=== PATIENT | female | born 1935 | race Hispanic/Latino ===

== ENCOUNTER 2016-09-15 19:21 | Emergency (ER) | payer MEDICARE, OTHER ==
[2016-09-15 19:25] VITALS: BMI 36.3
[2016-09-15 19:34] VITALS: TEMP 98
--- NOTE | 2016-09-15 19:42 | ED PDOC ---
Arrival/HPI - General Chief Complaint: Upper Extremity Problem/Injury Time Seen by Provider: 09/15/16 19:36 Historian: Patient - History of Present Illness Narrative History of Present Illness (Text): 09/15/16 19:37 81 y/o female, pmh includint htn/hyperlipidemia/hypothyroidism/afibb on coumadin , nkda, on coumadin, c/o lt. sided neck pain radiating to the lt. upper extremity x 3 days with no fall or trauma. Aching pain, tightness sensation, no chest pain or back pain, no night sweat, no palpitation, no numbness or tingling, no dizziness, took tramadol prior to arrival, no other medical or psychological complaints. Past Medical History - Provider Review Nursing Documentation Reviewed: Yes - Infectious Disease Hx of Infectious Diseases: None - Cardiac Hx Cardiac Disorders: Yes Hx Atrial Fibrillation: Yes Hx Hypertension: Yes - Pulmonary Hx Respiratory Disorders: No - Neurological Hx Neurological Disorder: Yes Other/Comment: neuropathy - HEENT Hx HEENT Disorder: No - Renal Hx Renal Disorder: No - Endocrine/Metabolic Hx Endocrine Disorders: Yes Hx Hypothyroidism: Yes - Hematological/Oncological Hx Blood Disorders: No - Integumentary Hx Dermatological Disorder: No - Musculoskeletal/Rheumatological Hx Musculoskeletal Disorders: No - Gastrointestinal Hx Gastrointestinal Disorders: No - Genitourinary/Gynecological Hx Genitourinary Disorders: No - Psychiatric Hx Psychophysiologic Disorder: No Hx Substance Use: No - Surgical History Hx Mastectomy: Yes (Right breast) - Anesthesia Hx Anesthesia: Yes Hx Anesthesia Reactions: No Family/Social History - Physician Review Nursing Documentation Reviewed: Yes Family/Social History: Unknown Family HX Smoking Status: Never Smoked Hx Alcohol Use: No Hx Substance Use: No Allergies/Home Meds Allergies/Adverse Reactions: Allergies No Known Allergies Allergy (Verified 03/28/16 12:58) Home Medications: Home Meds Medication Instructions Recorded Confirmed Amiodarone HCl [Pacerone] 100 mg PO DAILY 03/28/16 09/15/16 Furosemide [Lasix] 40 mg PO DAILY 03/28/16 09/15/16 Gabapentin [Neurontin] 100 mg PO BID 03/28/16 09/15/16 Gabapentin [Neurontin] 100 mg PO HS 03/28/16 09/15/16 Lansoprazole [Prevacid] 30 mg PO DAILY 03/28/16 09/15/16 Levothyroxine [Synthroid] 50 mcg PO DAILY 03/28/16 09/15/16 Lovastatin 40 mg PO DAILY 03/28/16 09/15/16 Metoprolol Succinate [Toprol XL] 50 mg PO DAILY 03/28/16 09/15/16 Oxybutynin XL [Ditropan XL] 5 mg PO DAILY 03/28/16 09/15/16 Risedronate Sodium [Actonel] 35 mg PO QWK 03/28/16 09/15/16 Warfarin [Coumadin] 2 mg PO DAILY 03/28/16 09/15/16 amLODIPine [Norvasc] 2.5 mg PO DAILY 03/28/16 09/15/16 Review of Systems - Review of Systems Constitutional: absent: Fatigue, Weight Change Eyes: absent: Vision Changes ENT: absent: Hearing Changes Respiratory: absent: SOB, Cough Cardiovascular: absent: Chest Pain Gastrointestinal: absent: Abdominal Pain, Diarrhea, Nausea, Vomiting Genitourinary Female: absent: Dysuria, Vaginal Bleeding Musculoskeletal: Neck Pain, Myalgias. absent: Arthralgias, Back Pain, Joint Swelling Skin: absent: Rash, Pruritis Neurological: absent: Headache, Dizziness Endocrine: absent: Diaphoresis, Polyuria, Polydipsia Hemo/Lymphatic: absent: Adenopathy, Easy Bleeding, Easy Bruising Physical Exam Vital Signs Reviewed: Yes Vital Signs Temp Pulse Resp BP Pulse Ox 09/15/16 19:33 98 F 58 L 20 111/67 96 Temperature: Afebrile Blood Pressure: Normal Pulse: Regular Respiratory Rate: Normal Appearance: Positive for: Well-Appearing, Non-Toxic, Uncomfortable Pain Distress: Severe Mental Status: Positive for: Alert and Oriented X 3 - Systems Exam Head: Present: Atraumatic, Normocephalic Pupils: Present: PERRL Extroacular Muscles: Present: EOMI Conjunctiva: Present: Normal Mouth: Present: Moist Mucous Membranes Neck: Present: Normal Range of Motion, Paraspinal Tenderness, Trachea Midline, Other (Cervical: +ttp and spams noted on the lt. trapezius plus the paraspinal region, no midline tenderness or step off, no rash or cellulitis, FROM with pain upon left lateral movement, sensation intact, motor 5/5, pain is 100% reproducible by left lateral movement. ). No: Meningeal Signs, MIDLINE TENDERNESS, Lymphadenopathy Respiratory/Chest: Present: Clear to Auscultation, Good Air Exchange. No: Respiratory Distress, Accessory Muscle Use Cardiovascular: Present: Regular Rate and Rhythm, Normal S1, S2. No: Murmurs Abdomen: Present: Normal Bowel Sounds. No: Tenderness, Distention, Peritoneal Signs Back: Present: Normal Inspection. No: CVA Tenderness, Midline Tenderness, Paraspinal Tenderness Upper Extremity: Present: Normal Inspection. No: Cyanosis, Edema Lower Extremity: Present: Normal Inspection. No: Edema Neurological: Present: GCS=15, CN II-XII Intact, Speech Normal Skin: Present: Warm, Dry, Normal Color. No: Rashes Psychiatric: Present: Alert, Oriented x 3, Normal Insight, Normal Concentration Medical Decision Making ED Course and Treatment: 09/15/16 19:43 -labs -lidoderm patch -valium -EKG -CT cervical -observe and reassess 09/15/16 21:26 -EKG show no acute significant changes compared with previous ekg -CT Cervical show mild foraminal narrowing with the degenerative changes. -Labs are non-significant with negative cardiac enzymes after several days of pain except wbc 11.6 which likely induced from pain and stress. -Pain relief with the valium and lidoderm patch, no pain now, request to be discharge home. I discussed with Dr. Welch about the case and he agreed on the dispo and discharge plan. -Discharge home with valium, lidoderm patch, heat compression, follow up with your own pmd and pain management within 2 days, return to the ER for any new or worsening signs or symptoms. - Lab Interpretations Lab Results: 09/15/16 20:00 09/15/16 20:00 Lab Results 09/15/16 20:00: WBC 11.6 H D, RBC 4.48, Hgb 13.2, Hct 40.5, MCV 90.4, MCH 29.5, MCHC 32.6, RDW 15.3 H, Plt Count 365, MPV 9.9, Gran % 67.0, Lymph % (Auto) 17.2 L, [place] % (Auto) 13.3 H, Eos % (Auto) 2.2, Baso % (Auto) 0.3, Gran # 7.77 H, Lymph # 2.0, [place] # 1.5 H, Eos # 0.3, Baso # 0.03, PT 10.9, INR 1.01, Sodium 138 , Potassium 4.1, Chloride 98, Carbon Dioxide 28, Anion Gap 16, BUN 18, Creatinine 1.0, Est GFR ( Amer) > 60, Est GFR (Non-Af Amer) 53, Random Glucose 127 H, Calcium 9.8, Total Bilirubin 0.9, AST 32, ALT 22, Alkaline Phosphatase 93, Lactate Dehydrogenase 560, Total Creatine Kinase 75, Troponin I < 0.01 D, Total Protein 7.4, Albumin 4.0, Globulin 3.3, Albumin/Globulin Ratio 1.2 I have reviewed the lab results: Yes Interpretation: Abnormal lab values (wbc 11.6) - RAD Interpretation Radiology Orders: 09/15/16 19:44 CERVICAL SPINE W/O CONTRAST [CT] Stat FINDINGS: Vertebrae: No acute fracture. Straightening of cervical spine. Degenerative anterolisthesis of mid cervical spine. Facet osteoarthrosis within cervical spine. Discs/spinal canal/neural foramina: Moderate to severe degenerative disc disease within mid to lower cervical spine. No significant central canal stenosis. Neural foraminal narrowing within mid and lower cervical spine. Soft tissues: Unremarkable. Vasculature: Mild atherosclerotic disease. Lung apices: Unremarkable as visualized. IMPRESSION: 1. No fracture. 2. Incidental/non-acute findings are described above. Thank you for allowing us to participate in the care of your patient. Dictated and Authenticated by: Amanuel Ham MD 09/15/2016 9:06 PM Eastern Time ([place] & [place]) [employer] Teacher: Radiologist - EKG Interpretation EKG Interpretation (Text): 09/15/16 20:00 SB @ 51 BPM, no acute ST or T wave changes compared with the previous ekg. Interpreted by ED Physician: Yes Type: 12 lead EKG Comparison: Com.w/previous EKG - Medication Orders Current Medication Orders: Discontinued Medications Diazepam (Valium) 5 mg PO ONCE ONE PRN Reason: Protocol Stop: 09/15/16 19:45 Last Admin: 09/15/16 19:52 Dose: 5 MG Behavioural Document 09/15/16 19:52 RD (Rec: 09/15/16 19:53 RD [id number]) Maintenance Maintenance Dose Yes Lidocaine (Lidoderm) 1 ea TD STAT STA Stop: 09/15/16 19:45 Last Admin: 09/15/16 19:52 Dose: 1 EA MAR Transdermal Patch Site Document 09/15/16 19:52 RD (Rec: 09/15/16 19:52 RD [id number]) Transdermal Patch Site Transdermal Patch Site Left Shoulder - PA / SECOND CLASS WELDER / Resident Statement / has reviewed & agrees with the documentation as recorded. Disposition/Present on Arrival - Present on Arrival Any Indicators Present on Arrival: No History of DVT/PE: No History of Uncontrolled Diabetes: No Urinary Catheter: No History of Decub. Ulcer: No History Surgical Site Infection Following: None - Disposition Have Diagnosis and Disposition been Completed?: Yes Diagnosis: Neck muscle spasm, Trapezius muscle spasm Disposition: HOME/ ROUTINE Disposition Time: 21:28 Patient Plan: Discharge Patient Problems: Current Active Problems Problem Status Diagnosed Neck muscle spasm Acute Trapezius muscle spasm Acute Condition: IMPROVED Additional Instructions: Discharge home with valium, lidoderm patch, heat compression, follow up with your own pmd and pain management within 2 days, return to the ER for any new or worsening signs or symptoms. Prescriptions: Lidocaine 5% [Lidoderm] 1 patch TP DAILY PRN #10 patch PRN Reason: Other diaZEpam [Valium] 5 mg PO TID PRN #8 tab PRN Reason: Other Referrals: Tish South DO [Primary Care Provider] - Follow up with primary Forms: WORK NOTE
[2016-09-15] MEDS ORDERED: Lidocaine 5% Patch TD STA (19:44)
[2016-09-15 20:30] LABS: ADD MANUAL DIFF? NO
[2016-09-15 20:35] LABS: BASO # 0.03 K/mm3 (0.0-2.0); BASO % 0.3 % (0.0-3.0); EOS # 0.3 (0.0-0.7); EOS % 2.2 % (1.5-5.0); GRAN # 7.77 (1.4-6.5); HEMATOCRIT 40.5 % (36.0-48.0); LYMPH % 17.2 % (22.0-35.0); MEAN CELL VOLUME 90.4 fL (80.0-105.0); MEAN CORPUSCULAR HEMOGLOBIN 29.5 pg (25.0-35.0); MEAN CORPUSCULAR HGB CONC 32.6 g/dl (31.0-37.0); MEAN PLATELET VOLUME 9.9 fl (7.0-11.0); MONO # 1.5 (0.1-0.6); MONO % 13.3 % (1.0-6.0); PLATELET COUNT 365 10^3/uL (120.0-450.0); RED CELL DISTRIBUTION WIDTH 15.3 % (11.5-14.5); WHITE BLOOD COUNT 11.6 10^3/ul (4.5-11.0)
[2016-09-15 20:43] LABS: ALB/GLOB RATIO 1.2 (1.1-1.8); ALKALINE PHOSPHATASE 93 U/L (38-133); ALT/SGPT 22 U/L (7-56); AST/SGOT 32 U/L (15-39); BILIRUBIN,TOTAL 0.9 mg/dL (0.2-1.3); BLOOD UREA NITROGEN 18 mg/dL (7-21); CALCIUM 9.8 mg/dL (8.4-10.5); CARBON DIOXIDE 28 mmol/L (21-33); CHLORIDE 98 mmol/L (98-107); GFR AFRICAN-AMERICAN > 60; GLUCOSE,RANDOM 127 mg/dL (70-110); POTASSIUM 4.1 mmol/L (3.6-5.0); SODIUM 138 mmol/L (132-148); TOTAL PROTEIN 7.4 g/dL (5.8-8.3)
[2016-09-15 20:56] LABS: TROPONIN I < 0.01 ng/mL
[2016-09-15 20:57] LABS: INR 1.01 (0.93-1.08)
--- NOTE | 2016-09-15 21:06 | CT ---
EXAM: CT Cervical Spine Without Intravenous Contrast. CLINICAL HISTORY: 81 years old, female; Pain; Cervicalgia; Patient HX: Lt. Sided neck pain radiating to the lt. Upper ext TECHNIQUE: Axial computed tomography images of the cervical spine without intravenous contrast. This CT exam was performed using one or more of the following dose reduction techniques: automated exposure control, adjustment of the mA and/or kV according to patient size, and/or use of iterative reconstruction technique. Coronal and sagittal reformatted images were created and reviewed. COMPARISON: No relevant prior studies available. FINDINGS: Vertebrae: No acute fracture. Straightening of cervical spine. Degenerative anterolisthesis of mid cervical spine. Facet osteoarthrosis within cervical spine. Discs/spinal canal/neural foramina: Moderate to severe degenerative disc disease within mid to lower cervical spine. No significant central canal stenosis. Neural foraminal narrowing within mid and lower cervical spine. Soft tissues: Unremarkable. Vasculature: Mild atherosclerotic disease. Lung apices: Unremarkable as visualized. IMPRESSION: 1. No fracture. 2. Incidental/non-acute findings are described above.
[2016-09-15 21:33] VITALS: BP 118/64; PULSE 59; RESP 16; O2SAT 99
--- NOTE | 2016-09-16 10:02 | CARD ---
APPROVED REPORT EKG Measurement Heart [id number] <Conclusion> Sinus bradycardia Nonspecific ST and T wave abnormality LVH by voltage A. Flutter no longer present.
== END 2016-09-15 21:40 | disposition home or self-care (01) ==
LOC: ED 19:21
DX: M62.838 Other muscle spasm (principal); I48.91 Unspecified atrial fibrillation; I10 Essential (primary) hypertension; E78.5 Hyperlipidemia, unspecified; E03.9 Hypothyroidism, unspecified; Z79.01 Long term (current) use of anticoagulants

== ENCOUNTER 2016-11-12 14:45 | Emergency (ER) | payer MEDICARE ==
[2016-11-12 14:45] VITALS: BMI 36.3
[2016-11-12 15:09] LABS: ADD MANUAL DIFF? NO
[2016-11-12 15:33] LABS: BASO # 0.03 K/mm3 (0.0-2.0); BASO % 0.3 % (0.0-3.0); EOS # 0.1 (0.0-0.7); EOS % 1.3 % (1.5-5.0); GRAN # 6.94 (1.4-6.5); GRAN % 68.1 % (50.0-68.0); HEMATOCRIT 41.9 % (36.0-48.0); LYMPH # 1.9 (1.2-3.4); LYMPH % 19.1 % (22.0-35.0); MEAN CELL VOLUME 91.5 fL (80.0-105.0); MEAN CORPUSCULAR HEMOGLOBIN 28.8 pg (25.0-35.0); MEAN CORPUSCULAR HGB CONC 31.5 g/dl (31.0-37.0); MEAN PLATELET VOLUME 9.6 fl (7.0-11.0); MONO # 1.1 (0.1-0.6); MONO % 11.2 % (1.0-6.0); PLATELET COUNT 277 10^3/uL (120.0-450.0); RED CELL DISTRIBUTION WIDTH 14.9 % (11.5-14.5); WHITE BLOOD COUNT 10.2 10^3/ul (4.5-11.0)
[2016-11-12 15:38] LABS: INR 2.44 (0.93-1.08); PARTIAL THROMBOPLASTIN TIME 35.9 Seconds (23.7-30.8)
--- NOTE | 2016-11-12 15:39 | ED PDOC ---
Arrival/HPI - General Chief Complaint: Chest Pain Time Seen by Provider: 11/12/16 15:07 Historian: Patient - History of Present Illness Narrative History of Present Illness (Text): 11/12/16 15:35 Clarissa Gross is an 81 year old female, whose past medical history includes Atrial Fibrillation, who presents to the emergency department complaining of chest discomfort for one day. Patient describes her pain is across her chest and is non-exertional. Patient endorses compliance with all medications. Patient denies any ripping, tearing,or radiating sensations and has no other complaints at this time. Previous records were reviewed, patient was discharged on 04/29/16 and was diagnosed with Pneumonia. Patient has a history of chronic atrial fibrillation. EKG now shows Atrial fibrillation at [address]-segment elevation. PMD: Dr. South Time/Duration: 24 hours Symptom Onset: Gradual Symptom Course: Unchanged Severity Level: Mild Activities at Onset: Rest Context: Home Past Medical History - Provider Review Nursing Documentation Reviewed: Yes - Infectious Disease Hx of Infectious Diseases: None - Cardiac Hx Cardiac Disorders: Yes Hx Atrial Fibrillation: Yes Hx Hypertension: Yes - Pulmonary Hx Respiratory Disorders: No - Neurological Hx Neurological Disorder: Yes Other/Comment: neuropathy - HEENT Hx HEENT Disorder: No - Renal Hx Renal Disorder: No - Endocrine/Metabolic Hx Endocrine Disorders: Yes Hx Hypothyroidism: Yes - Hematological/Oncological Hx Blood Disorders: No - Integumentary Hx Dermatological Disorder: No - Musculoskeletal/Rheumatological Hx Musculoskeletal Disorders: No - Gastrointestinal Hx Gastrointestinal Disorders: No - Genitourinary/Gynecological Hx Genitourinary Disorders: No - Psychiatric Hx Psychophysiologic Disorder: No Hx Substance Use: No - Surgical History Hx Mastectomy: Yes (Right breast) - Anesthesia Hx Anesthesia: Yes Hx Anesthesia Reactions: No Family/Social History - Physician Review Nursing Documentation Reviewed: Yes Family/Social History: No Known Family HX Smoking Status: Never Smoked Hx Alcohol Use: No Hx Substance Use: No Allergies/Home Meds Allergies/Adverse Reactions: Allergies No Known Allergies Allergy (Verified 03/28/16 12:58) Home Medications: Home Meds Medication Instructions Recorded Confirmed Amiodarone HCl [Pacerone] 100 mg PO DAILY 03/28/16 09/15/16 Furosemide [Lasix] 40 mg PO DAILY 03/28/16 09/15/16 Gabapentin [Neurontin] 100 mg PO BID 03/28/16 09/15/16 Gabapentin [Neurontin] 100 mg PO HS 03/28/16 09/15/16 Lansoprazole [Prevacid] 30 mg PO DAILY 03/28/16 09/15/16 Levothyroxine [Synthroid] 50 mcg PO DAILY 03/28/16 09/15/16 Lovastatin 40 mg PO DAILY 03/28/16 09/15/16 Metoprolol Succinate [Toprol XL] 50 mg PO DAILY 03/28/16 09/15/16 Oxybutynin XL [Ditropan XL] 5 mg PO DAILY 03/28/16 09/15/16 Risedronate Sodium [Actonel] 35 mg PO QWK 03/28/16 09/15/16 Warfarin [Coumadin] 2 mg PO DAILY 03/28/16 09/15/16 amLODIPine [Norvasc] 2.5 mg PO DAILY 03/28/16 09/15/16 Physical Exam - Physical Exam Narrative Physical Exam (Text): - Review of Systems Constitutional: Normal. absent: Fatigue, Weight Change, Fevers Eyes: Normal ENT: Normal Respiratory: Normal absent: SOB, Cough, Sputum Cardiovascular: Chest Discomfort Gastrointestinal: Normal absent: Abdominal pain, Diarrhea, Nausea, Vomiting Genitourinary: Normal. absent: Dysuria, Frequency, Hematuria Musculoskeletal: Normal. absent: Arthralgias, Back Pain, Neck Pain Skin: Normal Neurological: Normal absent: Focal Weakness Endocrine: Normal Hemo/Lymphatic: Normal Psychiatric: Normal - Physical exam Patient appears age appropriate, speaking full sentences without difficulty - Systems Exam Head: Present: Atraumatic, Normocephalic Pupils: Present: PERRL Extraocular Muscles: Present: EOMI Conjunctiva: Present: Normal Mouth: Present: Moist Mucous Membranes Neck: Present: Normal Range of Motion. No: MIDLINE TENDERNESS, Paraspinal Tenderness Respiratory/Chest: Present: Clear to Auscultation, Good Air Exchange. No: Respiratory Distress, Accessory Muscle Use, Tachypnic Cardiovascular: Tachycardic. No: Murmurs Abdomen: Present: Normal Bowel Sounds, No: Tenderness, Peritoneal Signs, Rebound, Guarding, Distention Back: Present: Normal Inspection. No: Midline Tenderness, Paraspinal Tenderness Upper Extremity: Present: Normal Inspection. No: Cyanosis, Edema Lower Extremity: Present: Normal Inspection. No: Edema Neurological: Present: GCS=15, Speech Normal, cranial nerves II through XII fully intact with no cerebellar abnormality, neuro-sensory fully intact. No focal neurological deficits. Skin: Present: Warm, Dry, Normal Color. No: Rashes Lymphatic: Present: OX3, NI, NC Psychiatric: Present: Alert, Oriented x 3, Normal Insight, Normal Concentration Vital Signs Temp Pulse Resp BP Pulse Ox 11/12/16 16:42 98.0 F 103 H 17 117/65 96 Medical Decision Making ED Course and Treatment: 11/12/16 15:24 Impression: 81 year old female complaining of chest discomfort for one day. Patient in no acute distress and denies any chest pain at this time. No acute findings on physical examination. Plan: -- Chest X-ray -- Labs -- Reassess and disposition Prior Visits: Notes and results from previous visits were reviewed. Patient last seen in the ED on 09/15/16 for left-sided neck pain radiating to left UE for 3 days. Patient was discharged home. Progress Notes: EKG shows Atrial Fibrillation at [address]-segment elevations, normal intervals. Interpreted by me. 11/12/16 17:[address] Wheeler, who states that patient can be discharged home and will follow up on . Patient was advised to be admitted for further workup but patient refused and requested to follow up with her claims representative. 11/12/16 17:49 pt again advised to be observed in the hospital, and she again refused states she feels comfortable going home with outpatient f/u Pt states she understands to return to the ER right away for new or worsening symptoms or for inability to f/u with PMD or specialist as instructed. Patient states that she fully agrees with and understands discharge instructions. States that she agrees with the plan and disposition. Verbalized and repeated discharge instructions and plan. I have given the patient opportunity to ask any additional questions. 11/12/16 17:57 Chest X-ray: Creator : Chaka Solis MD IMPRESSION: No active disease. - Lab Interpretations Lab Results: 11/12/16 15:00 11/12/16 17:00 Lab Results 11/12/16 17:00: Sodium 139, Potassium 3.8, Chloride 105, Carbon Dioxide 25, Anion Gap 13, BUN 24 H, Creatinine 1.0, Est GFR ( Amer) > 60, Est GFR ( Non-Af Amer) 53, Random Glucose 103, Calcium 9.1, Total Bilirubin 0.8, AST 32, ALT 43, Alkaline Phosphatase 102, Lactate Dehydrogenase 885 H, Total Creatine Kinase 119, Troponin I < 0.01, Total Protein 7.4, Albumin 4.1, Globulin 3.3, Albumin/Globulin Ratio 1.2 11/12/16 15:00: PT 26.3 H, INR 2.44 H, APTT 35.9 H 11/12/16 15:00: WBC 10.2, RBC 4.58, Hgb 13.2, Hct 41.9, MCV 91.5, MCH 28.8, MCHC 31.5, RDW 14.9 H, Plt Count 277, MPV 9.6, Gran % 68.1 H, Lymph % (Auto) 19.1 L, [place] % (Auto) 11.2 H, Eos % (Auto) 1.3 L, Baso % (Auto) 0.3, Gran # 6.94 H, Lymph # 1.9, [place] # 1.1 H, Eos # 0.1, Baso # 0.03 I have reviewed the lab results: Yes - RAD Interpretation Radiology Orders: 11/12/16 15:04 CHEST PORTABLE [RAD] Stat - Scribe Statement The provider has reviewed the documentation as recorded by the Bernadette Barfield Provider Scribe Attestation: All medical record entries made by the Scribe were at my direction and personally dictated by me. I have reviewed the chart and agree that the record accurately reflects my personal performance of the history, physical exam, medical decision making, and the department course for this patient. I have also personally directed, reviewed, and agree with the discharge instructions and disposition. Disposition/Present on Arrival - Present on Arrival Any Indicators Present on Arrival: No History of DVT/PE: No History of Uncontrolled Diabetes: No Urinary Catheter: No History of Decub. Ulcer: No History Surgical Site Infection Following: None - Disposition Have Diagnosis and Disposition been Completed?: Yes Diagnosis: Chest pain Disposition: HOME/ ROUTINE Disposition Time: 17:52 Patient Plan: Discharge Patient Problems: Current Active Problems Problem Status Onset Chest pain Acute Condition: GOOD Discharge Instructions (ExitCare): Chest Pain (ED) Additional Instructions: PLEASE RETURN TO THE EMERGENCY DEPARTMENT FOR NEW OR WORSENING SYMPTOMS. RETURN RIGHT AWAY IF YOU CANNOT FOLLOW UP WITH YOUR PRIMARY CARE DOCTOR, CLINIC, OR SPECIALIST IN 1-2 DAYS. Referrals: Tish South DO [Primary Care Provider] - Follow up with primary Zane Wheeler MD [Staff Provider] - Follow up with primary
--- NOTE | 2016-11-12 15:50 | RAD ---
HISTORY: chest pain COMPARISON: No prior. FINDINGS: LUNGS: No active pulmonary disease. PLEURA: No significant pleural effusion identified, no pneumothorax apparent. CARDIOVASCULAR: Moderate cardiomegaly OSSEOUS STRUCTURES: No significant abnormalities. VISUALIZED UPPER ABDOMEN: Normal. OTHER FINDINGS: None. IMPRESSION: No active disease.
[2016-11-12 16:43] VITALS: TEMP 98
[2016-11-12 17:30] LABS: ALB/GLOB RATIO 1.2 (1.1-1.8); ALKALINE PHOSPHATASE 102 U/L (38-133); ALT/SGPT 43 U/L (7-56); AST/SGOT 32 U/L (15-39); BILIRUBIN,TOTAL 0.8 mg/dL (0.2-1.3); BLOOD UREA NITROGEN 24 mg/dL (7-21); CALCIUM 9.1 mg/dL (8.4-10.5); CARBON DIOXIDE 25 mmol/L (21-33); CHLORIDE 105 mmol/L (98-107); GFR AFRICAN-AMERICAN > 60; GLUCOSE,RANDOM 103 mg/dL (70-110); POTASSIUM 3.8 mmol/L (3.6-5.0); SODIUM 139 mmol/L (132-148); TOTAL PROTEIN 7.4 g/dL (5.8-8.3)
[2016-11-12 17:48] LABS: TROPONIN I < 0.01 ng/mL
[2016-11-12 18:03] VITALS: BP 129/76; PULSE 95; RESP 16; O2SAT 95
--- NOTE | 2016-11-12 22:21 | CARD ---
APPROVED REPORT EKG Measurement Heart [id number] <Conclusion> Atrial flutter with variable AV block Nonspecific ST and T wave abnormality Abnormal ECG
== END 2016-11-12 18:06 | disposition home or self-care (01) ==
LOC: ED 14:45
DX: I48.91 Unspecified atrial fibrillation (principal)

== ENCOUNTER 2017-01-23 09:08 | Observation (INO) | payer MEDICARE ==
[2017-01-23 10:04] LABS: BASO # 0.04 K/mm3 (0.0-2.0); BASO % 0.7 % (0.0-3.0); EOS # 0.3 (0.0-0.7); EOS % 5.4 % (1.5-5.0); GRAN # 2.74 (1.4-6.5); GRAN % 45.2 % (50.0-68.0); HEMOGLOBIN 12.7 gm/dL (12.0-16.0); LYMPH # 2.1 (1.2-3.4); LYMPH % 34.2 % (22.0-35.0); MEAN CELL VOLUME 85.8 fL (80.0-105.0); MEAN CORPUSCULAR HGB CONC 31.4 g/dl (31.0-37.0); MEAN PLATELET VOLUME 10.1 fl (7.0-11.0); MONO # 0.9 (0.1-0.6); MONO % 14.5 % (1.0-6.0); PLATELET COUNT 307 10^3/uL (120.0-450.0); RBC 4.71 10^6/uL (3.5-6.1); RED CELL DISTRIBUTION WIDTH 16.4 % (11.5-14.5); WHITE BLOOD COUNT 6.1 10^3/ul (4.5-11.0)
--- NOTE | 2017-01-23 10:09 | ED PDOC ---
Arrival/HPI - General Chief Complaint: Medical Clearance Time Seen by Provider: 01/23/17 09:16 Historian: Patient - History of Present Illness Narrative History of Present Illness (Text): 01/23/17 09:51 Clarissa Gross is an 81 year old female, whose past medical history includes Atrial Fibrillation, HTN, breast CA in remission, PUD, and UTI, who was sent into emergency department by Dr. South for a high INR level of 10 when blood was drawn two days ago. Patient states that she has been feeling nauseated for the past month, possibly attributed to antibiotics for a UTI. This morning, the patient was trying to take pills but had a small vomitus with blood streaks. Patient denies any abdominal pain, hematochezia, hematuria, or any other complaint at this time. PMD: Dr. South Urologist: Dr. Cates GI: Dr. Hsieh Time/Duration: < month Symptom Onset: Gradual Symptom Course: Unchanged Severity Level: Mild Activities at Onset: Light Context: Home Past Medical History - Provider Review Nursing Documentation Reviewed: Yes - Infectious Disease Hx of Infectious Diseases: None - Reproductive Menopause: Yes - Cardiac Hx Cardiac Disorders: Yes Hx Atrial Fibrillation: Yes Hx Hypertension: Yes - Pulmonary Hx Respiratory Disorders: No - Neurological Hx Neurological Disorder: Yes Other/Comment: neuropathy - HEENT Hx HEENT Disorder: No - Renal Hx Renal Disorder: No - Endocrine/Metabolic Hx Endocrine Disorders: Yes Hx Hypothyroidism: Yes - Hematological/Oncological Hx Blood Disorders: No - Integumentary Hx Dermatological Disorder: No - Musculoskeletal/Rheumatological Hx Musculoskeletal Disorders: No - Gastrointestinal Hx Gastrointestinal Disorders: No - Genitourinary/Gynecological Hx Genitourinary Disorders: No Other/Comment: frequent UTI - Psychiatric Hx Psychophysiologic Disorder: No Hx Substance Use: No - Surgical History Hx Mastectomy: Yes (Right breast) - Anesthesia Hx Anesthesia: Yes Hx Anesthesia Reactions: No Family/Social History - Physician Review Nursing Documentation Reviewed: Yes Family/Social History: No Known Family HX Smoking Status: Never Smoked Hx Alcohol Use: No Hx Substance Use: No Allergies/Home Meds Allergies/Adverse Reactions: Allergies No Known Allergies Allergy (Verified 01/23/17 12:06) Home Medications: Home Meds Medication Instructions Recorded Confirmed Amiodarone HCl [Pacerone] 100 mg PO DAILY 03/28/16 01/23/17 Furosemide [Lasix] 40 mg PO DAILY 03/28/16 01/23/17 Lansoprazole [Prevacid] 30 mg PO DAILY 03/28/16 01/23/17 Levothyroxine [Synthroid] 50 mcg PO DAILY 03/28/16 01/23/17 Lovastatin 40 mg PO DAILY 03/28/16 01/23/17 Metoprolol Succinate [Toprol XL] 50 mg PO DAILY 03/28/16 01/23/17 Oxybutynin XL [Ditropan XL] 5 mg PO DAILY 03/28/16 01/23/17 Risedronate Sodium [Actonel] 35 mg PO QWK 03/28/16 01/23/17 Warfarin [Coumadin] 2 mg PO DAILY 03/28/16 01/23/17 amLODIPine [Norvasc] 2.5 mg PO DAILY 03/28/16 01/23/17 Nortriptyline [Nortriptyline HCl] 100 mg PO HS 01/23/17 01/23/17 Review of Systems - Physician Review All systems were reviewed & negative as marked: Yes - Review of Systems Constitutional: Other (INR level 10). absent: Night Sweats Eyes: absent: Vision Changes ENT: absent: Hearing Changes Respiratory: absent: SOB, Cough Cardiovascular: absent: Chest Pain Gastrointestinal: Vomiting (with streaks of blood), Other. absent: Abdominal Pain Genitourinary Female: absent: Hematuria, Urine Output Changes Musculoskeletal: Neck Pain. absent: Arthralgias, Back Pain Skin: absent: Rash, Pruritis Neurological: absent: Headache, Dizziness Endocrine: absent: Diaphoresis Hemo/Lymphatic: absent: Adenopathy Psychiatric: absent: Depression Physical Exam Vital Signs Reviewed: Yes Vital Signs Temp Pulse Resp BP Pulse Ox 01/23/17 12:34 53 L 18 120/53 L 98 01/23/17 11:41 51 L 18 140/61 98 01/23/17 09:12 97.5 F L 48 L 18 142/65 98 Temperature: Afebrile Blood Pressure: Normal Pulse: Bradycardic Respiratory Rate: Normal Appearance: Positive for: Well-Appearing, Non-Toxic, Comfortable Pain Distress: None Mental Status: Positive for: Alert and Oriented X 3 - Systems Exam Head: Present: Atraumatic, Normocephalic Pupils: Present: PERRL Conjunctiva: Present: Normal Mouth: Present: Moist Mucous Membranes Pharnyx: Present: Normal. No: ERYTHEMA, EXUDATE Neck: Present: Normal Range of Motion Respiratory/Chest: Present: Clear to Auscultation, Good Air Exchange. No: Respiratory Distress, Accessory Muscle Use Cardiovascular: Present: Regular Rate and Rhythm, Normal S1, S2. No: Murmurs Abdomen: Present: Normal Bowel Sounds. No: Tenderness, Distention, Peritoneal Signs Back: Present: Normal Inspection Upper Extremity: Present: Normal Inspection. No: Cyanosis, Edema Lower Extremity: Present: Normal Inspection. No: Edema Neurological: Present: GCS=15, CN II-XII Intact, Speech Normal Skin: Present: Warm, Dry, Normal Color. No: Rashes Psychiatric: Present: Alert, Oriented x 3, Normal Insight, Normal Concentration Medical Decision Making ED Course and Treatment: 01/23/17 09:51 Impression: 81 year old female sent in by Dr. South for an elevated INR level of 10 when blood was drawn two days ago. Differential Diagnosis included but are not limited to: Elevated INR Levels Plan: -- Labs -- Reassess and disposition Prior Visits: Notes and results from previous visits were reviewed. Patient last seen in the ED on 11/12/16 for chest discomfort that day. Patient was discharged home. Progress Notes: EKG: Ordered, reviewed, and independently interpreted the EKG. Rate : BPM Rhythm : Sinus bradycardia Interpretation : Normal intervals. Normal [place]. Non-specific ST-T wave changes. 01/23/17 11:29 Patient with noted history; INR repeated here in 9.21; given concern for possible GI bleeding with the coumadin coagulopathy, will administer vitamin K and observe further and obtain GI consult. Discussed the case with Dr. South. 01/23/17 13:[address] Pagan for placement on her service. - Lab Interpretations Lab Results: 01/23/17 10:00 01/23/17 10:50 Lab Results 01/23/17 10:50: Sodium 139, Potassium 3.9, Chloride 104, Carbon Dioxide 25, Anion Gap 14, BUN 11, Creatinine 1.1, Est GFR ( Amer) 57, Est GFR (Non- Af Amer) 47, Random Glucose 92, Calcium 8.9, Magnesium 1.8, Total Bilirubin 1.2 , AST 33, ALT 25, Alkaline Phosphatase 81, Lactate Dehydrogenase 485, Total Creatine Kinase 54, Troponin I < 0.01, Total Protein 6.6, Albumin 3.6, Globulin 3.0, Albumin/Globulin Ratio 1.2, Lipase 47 01/23/17 10:00: PT 99.5 H*, INR 9.21 H*, APTT 67.4 H 01/23/17 10:00: WBC 6.1 D, RBC 4.71, Hgb 12.7, Hct 40.4, MCV 85.8, MCH 27.0, MCHC 31.4, RDW 16.4 H, Plt Count 307, MPV 10.1, Gran % 45.2 L, Lymph % (Auto) 34.2, Rooks % (Auto) 14.5 H, Eos % (Auto) 5.4 H, Baso % (Auto) 0.7, Gran # 2.74, Lymph # 2.1, Rooks # 0.9 H, Eos # 0.3, Baso # 0.04 I have reviewed the lab results: Yes - Medication Orders Current Medication Orders: Amiodarone HCl (Cordarone) 100 mg PO DAILY [facility] Amlodipine Besylate (Norvasc) 2.5 mg PO DAILY [facility] Atorvastatin Calcium (Lipitor) 10 mg PO DIN [facility] Diazepam (Valium) 5 mg PO TID PRN; Protocol PRN Reason: Other Furosemide (Lasix) 40 mg PO DAILY [facility] Levothyroxine Sodium (Synthroid) 50 mcg PO DAILY [facility] Metoprolol Succinate (Toprol Xl) 50 mg PO DAILY [facility] Non-Formulary Medication (Oxybutynin Xl [Ditropan Xl]) 5 mg PO DAILY [facility] Nortriptyline HCl (Pamelor) 100 mg PO HS [facility] Discontinued Medications Ondansetron HCl (Zofran Inj) 4 mg IVP STAT STA Stop: 01/23/17 11:26 Last Admin: 01/23/17 12:40 Dose: 4 mg Pantoprazole Sodium (Protonix Inj) 40 mg IVP ONCE STA Stop: 01/23/17 11:27 Last Admin: 01/23/17 12:40 Dose: 40 mg Phytonadione (Vitamin K Tab) 5 mg PO ONCE STA Stop: 01/23/17 10:37 Last Admin: 01/23/17 11:15 Dose: 5 mg - Reshmaibsimran Statement The provider has reviewed the documentation as recorded by the Bernadette Barfield Provider Scribe Attestation: All medical record entries made by the Reshmaibsimran were at my direction and personally dictated by me. I have reviewed the chart and agree that the record accurately reflects my personal performance of the history, physical exam, medical decision making, and the department course for this patient. I have also personally directed, reviewed, and agree with the discharge instructions and disposition. Disposition/Present on Arrival - Present on Arrival Any Indicators Present on Arrival: No History of DVT/PE: No History of Uncontrolled Diabetes: No Urinary Catheter: No History of Decub. Ulcer: No History Surgical Site Infection Following: None - Disposition Have Diagnosis and Disposition been Completed?: Yes Diagnosis: Coagulopathy Disposition: HOSPITALIZED Disposition Time: 11:25 Patient Plan: Observation Condition: FAIR
[2017-01-23 10:22] LABS: PARTIAL THROMBOPLASTIN TIME 67.4 Seconds (23.7-30.8); PROTHROMBIN TIME 99.5 Seconds (9.9-11.8)
[2017-01-23 10:24] LABS: INR 9.21 (0.93-1.08)
[2017-01-23 11:34] LABS: ALB/GLOB RATIO 1.2 (1.1-1.8); ALBUMIN 3.6 g/dL (3.0-4.8); ALT/SGPT 25 U/L (7-56); AST/SGOT 33 U/L (15-39); BLOOD UREA NITROGEN 11 mg/dL (7-21); CALCIUM 8.9 mg/dL (8.4-10.5); GFR AFRICAN-AMERICAN 57; GFR NON-AFRICAN AMERICAN 47; LIPASE 47 U/L (23-300); MAGNESIUM 1.8 mg/dL (1.7-2.2)
[2017-01-23 11:48] LABS: TROPONIN I < 0.01 ng/mL
[2017-01-23 12:39] LABS: URINE BILIRUBIN NEGATIVE (NEGATIVE); URINE BLOOD NEGATIVE (NEGATIVE); URINE GLUCOSE (UA) NEGATIVE (NEGATIVE); URINE LEUKOCYTE ESTERASE SMALL Leu/uL (NEGATIVE); URINE NITRATE NEGATIVE (NEGATIVE); URINE PROTEIN TRACE mg/dL (<30 mg/dL); URINE UROBILINOGEN 0.2 E.U./dL (<1 E.U./dL)
[2017-01-23 12:41] LABS: URINE APPEARANCE SL CLOUDY (CLEAR); URINE COLOR YELLOW (YELLOW)
[2017-01-23 13:02] LABS: URINE RBC 0 - 2 /hpf (0-2)
[2017-01-23 13:03] LABS: URINE BACTERIA FEW (NEG)
[2017-01-23] MEDS: Levothyroxine 50 MCG TAB PO SCH (13:28)
[2017-01-23] MEDS: Metoprolol Succinate 50 mg XL Tab PO SCH (13:28)
[2017-01-23 14:57] VITALS: BMI 34.7
[2017-01-23] MEDS ORDERED: Pneumococcal 23-Valent Vaccine IM ONE (14:57)
--- NOTE | 2017-01-23 21:01 | CARD ---
APPROVED REPORT EKG Measurement Heart [id number] <Conclusion> Sinus bradycardia Nonspecific ST and T wave abnormality Prolonged QT Abnormal ECG
--- NOTE | 2017-01-23 23:34 | HP ---
HISTORY OF PRESENT ILLNESS: The patient is an 81 years old known to me from previous admission. Patient states she had blood work done for her Coumadin level, 2 days ago, and she got call from Dr. South's office that her number is high and she should go to emergency room. Patient states she has not been feeling well for last few days. She did have episode of UTI. She was given Cipro and yesterday she vomited and vomitus was blood tinged. Still complained of lack of appetite. No black stools. No abdominal pain. Otherwise no nausea or vomiting. PAST MEDICAL HISTORY: Significant for: 1. Hypertension. 2. Chronic AFib. 3. Peptic ulcer disease. 4. Generalized osteoarthritis. 5. Hypothyroidism. 6. History of CA breast, currently in remission. ALLERGIES: PATIENT IS NOT ALLERGIC TO ANY MEDICATIONS. MEDICATIONS AT HOME: She is on: 1. Diazepam 5 mg three times a day. 2. Lovastatin 40 mg daily. 3. Lidoderm patch. 4. Prevacid 30 mg daily. 5. Lasix 40 mg daily. 6. Actonel 735 mg q. weekly. 7. Oxybutynin. 8. Coumadin 2 mg daily. 9. Amlodipine 2.5 mg daily. 10. Metoprolol 50 mg daily. 11. Levothyroxine 50 mcg daily. 12. Amiodarone 100 mg daily. 13. Nortriptyline 100 mg at bedtime. SOCIAL HISTORY: She lives with her family. Denies smoking or drinking. She used to be heavy smoker before. REVIEW OF SYSTEMS: Significant for off and on nausea, complaint of generalized weakness. PHYSICAL EXAMINATION VITAL SIGNS: She is afebrile, pulse 50, respirations 18, blood pressure . LUNGS: Bilaterally fair airflow. No rhonchi or crackle. HEART: S1 and S2 audible. ABDOMEN: Soft and nontender. No rebound. No guarding. NEUROLOGICAL: The patient is awake and alert, communicative. LABORATORY DATA: WBC is 6.1, hemoglobin 12.7, hematocrit 40.4 and platelet 307. PT 99.5, INR 9.21. Chemistries: Sodium 139, potassium 3.9, chloride 104, CO2 of 24, BUN 11, creatinine 1.1 and blood sugar of 92. LFTs are within normal limits. Urine shows small leukocytes protein. X-ray of chest is unremarkable. ASSESSMENT: 1. Supratherapeutic INR, coagulopathy induced by Coumadin. 2. Chronic atrial fibrillation. 3. Hypertension. 4. History of carcinoma breast. PLAN: We will continue patient on current medication. I will start her on Protonix. She was given one dose of vitamin K, follow up for PT/INR, request for fall precaution. Followup PT, INR, CBC, and CMP in a.m. Jackie Pagan MD
[2017-01-24] MEDS: Pantoprazole 40 mg EC Tab PO SCH ×2 (06:11→16:05)
[2017-01-24 06:54] LABS: INR 2.84 (0.93-1.08); PROTHROMBIN TIME 30.7 Seconds (9.9-11.8)
[2017-01-24 06:55] LABS: BASO # 0.03 K/mm3 (0.0-2.0); BASO % 0.5 % (0.0-3.0); EOS # 0.3 (0.0-0.7); EOS % 5.1 % (1.5-5.0); GRAN # 3.01 (1.4-6.5); GRAN % 54.5 % (50.0-68.0); HEMOGLOBIN 11.9 gm/dL (12.0-16.0); LYMPH # 1.3 (1.2-3.4); LYMPH % 24.3 % (22.0-35.0); MEAN CELL VOLUME 84.7 fL (80.0-105.0); MEAN CORPUSCULAR HEMOGLOBIN 25.9 pg (25.0-35.0); MEAN CORPUSCULAR HGB CONC 30.6 g/dl (31.0-37.0); MEAN PLATELET VOLUME 10.2 fl (7.0-11.0); MONO # 0.9 (0.1-0.6); MONO % 15.6 % (1.0-6.0); PLATELET COUNT 271 10^3/uL (120.0-450.0); RBC 4.59 10^6/uL (3.5-6.1); RED CELL DISTRIBUTION WIDTH 16.1 % (11.5-14.5); WHITE BLOOD COUNT 5.5 10^3/ul (4.5-11.0)
[2017-01-24 07:13] LABS: ALB/GLOB RATIO 1.2 (1.1-1.8); ALBUMIN 3.3 g/dL (3.0-4.8); ALT/SGPT 27 U/L (7-56); AST/SGOT 32 U/L (15-39); BLOOD UREA NITROGEN 9 mg/dL (7-21); CALCIUM 8.2 mg/dL (8.4-10.5); GFR AFRICAN-AMERICAN > 60; GFR NON-AFRICAN AMERICAN 60
[2017-01-24] MEDS: Levothyroxine 50 MCG TAB PO SCH (09:27)
[2017-01-24] MEDS: Metoprolol Succinate 50 mg XL Tab PO SCH (09:27)
[2017-01-24] MEDS ORDERED: OXYBUTYNIN 5 MG PO SCH (10:00)
[2017-01-24] MEDS ORDERED: Potassium Chloride 20 mEq ER Tab PO ONE ×2 (11:52→15:30)
[2017-01-24] MEDS ORDERED: Potassium Chloride 20 mEq ER Tab PO STA (11:53)
[2017-01-24 17:04] VITALS: BP 126/67; PULSE 51; RESP 18; TEMP 98; O2SAT 98
[2017-01-24 18:07] LABS: ALB/GLOB RATIO 1.2 (1.1-1.8); ALBUMIN 4.1 g/dL (3.0-4.8); CALCIUM 8.8 mg/dL (8.4-10.5)
--- NOTE | 2017-01-25 03:24 | DS ---
HISTORY OF PRESENT ILLNESS: The patient is an 81-year-old seen and examined. She states she does not know if she is anymore able to eat and tolerate. No nausea, vomiting. No diarrhea. Cannot tolerate IV potassium, so is being switched to p.o. The patient was admitted with supratherapeutic INR and she was nauseous. PHYSICAL EXAMINATION: GENERAL: Today, she looks comfortable. VITAL SIGNS: She is afebrile, pulse 50, respirations 20, blood pressure 145/72. LUNGS: Bilateral fair airflow. No rhonchi or crackle. HEART: S1, S2 audible. No murmur. ABDOMEN: Soft and nontender. No rebound, no guarding. NEUROLOGIC: She is awake and alert. Communicative. LABORATORY DATA: WBC 5.5, hemoglobin 11.9, hematocrit 38.9, and platelet of 271. PT 30.2, INR 2.84. Chemistry, sodium 140, potassium 2.9, chloride 106, CO2 of 24, BUN 9, creatinine 0.9, blood sugar of 77, total bilirubin 1.5. ASSESSMENT: 1. Supratherapeutic INR. 2. Chronic atrial fibrillation, on Coumadin. 3. Hypertension. 4. Chronic atrial fibrillation. 5. History of cancer of breast. 6. Hypokalemia. PLAN: The patient will receive 2 doses of 40 mEq potassium and we will have Chem-7 at 6 p.m., and if her potassium is corrected, she will be discharged today, and she will follow with Dr. South as outpatient. She will resume all her medication as prior to admission including amiodarone, Lasix, Lipitor, amlodipine, oxybutynin, nortriptyline, and Protonix along with levothyroxine, metoprolol. Jackie Pagan MD
== END 2017-01-24 20:21 | disposition home or self-care (01) ==
LOC: ED 09:08 → ERH 11:25 → 3RSO 13:11
PROVIDERS: ADMIT Internal Medicine; ATTEND Internal Medicine
DX: R79.1 Abnormal coagulation profile (principal); Z79.01 Long term (current) use of anticoagulants; I48.2 Chronic atrial fibrillation; I10 Essential (primary) hypertension; E87.6 Hypokalemia; E03.9 Hypothyroidism, unspecified; M15.9 Polyosteoarthritis, unspecified; Z87.891 Personal history of nicotine dependence; Z85.3 Personal history of malignant neoplasm of breast; Z87.11 Personal history of peptic ulcer disease
CPT/HCPCS: 36415; 80053; 81001; 82550; 83615; 83690; 83735; 84484; 85025; 85610; 85730; 93005; 96361; 96374; 96375; 99283; C9113; G0378; J2405; J3480

== ENCOUNTER 2018-04-19 15:37 | Inpatient (IN) | payer MEDICARE ==
[2018-04-19 16:06] VITALS: BMI 36.8
--- NOTE | 2018-04-19 16:09 | ED PDOC ---
Arrival/HPI - General Chief Complaint: Shortness Of Breath Time Seen by Provider: 04/19/18 15:42 - History of Present Illness Narrative History of Present Illness (Text): 83 yr old female w/ hx of HTN, HLD, Afib on coumadin, pacemaker, neuropathy p/w shortness of breath. Pt notes SOB x24 hours. She notes that 3d prior she was taken off gabapentin by Dr. Ornelas (Neuro) for her chronic neuropathy and started on Lamotrigene which caused a rash on her face which did not include her mouth. She then discontinued the Lamotrogiene. She then noted nausea which resolved. She noted having some shortness of breath 2d prior, which has been worse with exertion. She notes first time occurence of these symptoms. She notes that she has been on lasix in the past for LE edema. She notes that her last stress test and echo were 1.5+ years ago. No hx of blood clots. Pt notes mild b/l LE edema. She notes CHAPA without orthopnea. No dark or bloody stool. No constipation or diarrhea No vaginal bleeding or vaginal d/c No neck stiffness or headache No abdominal pain or chest pain PMD: Dr. South Neuro: Dr. Ornelas Cards: Dr. Corbin Past Medical History - Infectious Disease Hx of Infectious Diseases: None - Cardiac Hx Cardiac Disorders: Yes Hx Cardiac Arrhythmia: Yes (AFIB ON COUMADIN) Hx Hypertension: Yes - Pulmonary Hx Respiratory Disorders: Yes (SMOKED CIGARETTES QUIT 1978) - Neurological Hx Neurological Disorder: Yes Other/Comment: neuropathy - HEENT Hx HEENT Disorder: No - Renal Hx Renal Disorder: No - Endocrine/Metabolic Hx Endocrine Disorders: Yes Hx Hypothyroidism: Yes - Hematological/Oncological Hx Blood Disorders: No Other/Comment: BLOOD COAGULATION DISORDER. INR WAS 10 01-23-17 - Integumentary Hx Dermatological Disorder: No - Musculoskeletal/Rheumatological Hx Musculoskeletal Disorders: No Hx Falls: No - Gastrointestinal Hx Gastrointestinal Disorders: Yes (NAUSEA FOR A MONTH 01-23-17,H. PYLORI) - Genitourinary/Gynecological Hx Genitourinary Disorders: Yes (BREAST CA POST MASTECTOMY 1999,OOPHORECTOMY X1) Hx Urinary Tract Infection: Yes Other/Comment: frequent UTI - Psychiatric Hx Psychophysiologic Disorder: Yes (SMOKED CIGARETTES H/O QUIT 1978) Hx Substance Use: No - Surgical History Hx Mastectomy: Yes (Right breast) - Anesthesia Hx Anesthesia: Yes Hx Anesthesia Reactions: No Family/Social History Family/Social History: Unknown Family HX Smoking Status: Former Smoker Hx Alcohol Use: No Hx Substance Use: No Allergies/Home Meds Allergies/Adverse Reactions: Allergies No Known Allergies Allergy (Verified 04/19/18 15:59) Home Medications: Home Meds Medication Instructions Recorded Confirmed Lansoprazole [Prevacid] 30 mg PO DAILY 03/28/16 04/19/18 Levothyroxine [Synthroid] 50 mcg PO DAILY 03/28/16 04/19/18 Lovastatin 40 mg PO DAILY 03/28/16 04/19/18 Oxybutynin XL [Ditropan XL] 5 mg PO DAILY 03/28/16 04/19/18 Risedronate Sodium [Actonel] 35 mg PO QWK 03/28/16 04/19/18 amLODIPine [Norvasc] 100 mg PO DAILY 03/28/16 04/19/18 Gabapentin [Neurontin] 300 mg PO DAILY 04/19/18 04/19/18 Risedronate Sodium [Actonel] 35 mg PO ONCE 04/19/18 04/19/18 Warfarin Sodium [Jantoven] 2 mg PO DAILY 04/19/18 04/19/18 Review of Systems - Review of Systems Constitutional: absent: Fatigue, Weight Change, Fevers Eyes: absent: Vision Changes, Photophobia ENT: absent: Hearing Changes, Tinnitus, TMJ Pain Respiratory: SOB. absent: Cough, Sputum, Wheezing Cardiovascular: absent: Chest Pain, Palpitations, Edema Gastrointestinal: absent: Abdominal Pain, Stool Changes, Constipation Genitourinary Female: absent: Dysuria, Frequency Musculoskeletal: absent: Arthralgias, Back Pain Skin: absent: Rash, Pruritis, Skin Lesions Neurological: absent: Headache, Dizziness Endocrine: absent: Diaphoresis Hemo/Lymphatic: absent: Adenopathy Psychiatric: absent: Anxiety, Depression Physical Exam Vital Signs Reviewed: Yes Vital Signs Temp Pulse Resp BP Pulse Ox 04/19/18 15:53 98.3 F 60 20 145/79 97 04/19/18 15:52 98.3 F 60 20 145/79 97 Temperature: Afebrile Blood Pressure: Normal Pulse: Regular Respiratory Rate: Normal Appearance: Positive for: Well-Appearing Pain Distress: None Mental Status: Positive for: Alert and Oriented X 3 - Systems Exam Head: Present: Atraumatic, Normocephalic Pupils: Present: PERRL Extroacular Muscles: Present: EOMI Conjunctiva: Present: Normal Ears: Present: Normal, NORMAL TM, Normal Canal. No: Erythema, TM Bulging Mouth: Present: Moist Mucous Membranes Pharnyx: Present: Normal Neck: Present: Normal Range of Motion. No: Meningeal Signs, MIDLINE TENDERNESS Respiratory/Chest: Present: Clear to Auscultation, Good Air Exchange. No: Respiratory Distress, Accessory Muscle Use, Wheezes Cardiovascular: Present: Regular Rate and Rhythm, Normal S1, S2, Peripheal Pulses Present. No: Murmurs, Tachycardic, Bradycardic, Rub, Gallop Abdomen: Present: Normal Bowel Sounds. No: Tenderness, Distention, Rebound, Guarding Back: Present: Normal Inspection. No: CVA Tenderness, Midline Tenderness Upper Extremity: Present: Normal Inspection, NORMAL PULSES, Neurovascularly Intact. No: Cyanosis, Edema, Tenderness Lower Extremity: Present: Normal Inspection, Edema (1+ b/l), NORMAL PULSES, Neurovascularly Intact, Capillary Refill < 2 s. No: CALF TENDERNESS Neurological: Present: GCS=15, CN II-XII Intact, Speech Normal Skin: Present: Warm Psychiatric: Present: Alert, Oriented x 3, Normal Insight Medical Decision Making ED Course and Treatment: 83 yr old female w/ hx of HTN, HLD, afib on coumadin p/w sob, worsening w/ CHAPA And b/l LE swelling. On coumadin. No fall or trauma or f/c/ns. No chest pain or abdominal pain or dark or bloody stool. Given distant hx of Echo and Stress along w/ SOB and CHAPA, will likely require obs for Echo to determine EF. EK V-paced, No Stemi 04/19/18 18:15 labs resulted, largely unremarkable except BNP BNP elevated to 2200- no previous recent labs resulted similiar. Given CHAPA and SOB patient will likely require further management with cards + IM as well as echo. Appreciate consult w/ Dr. Pickard on for Dr. Pagan (admits for [facility])- to be admitted to her service. Pt in NAD, remains AOX3 and comfortable and amenable to plan - RAD Interpretation Radiology Orders: 04/19/18 15:58 CHEST TWO VIEWS (PA/LAT) [RAD] Stat Disposition/Present on Arrival - Present on Arrival Any Indicators Present on Arrival: No History of DVT/PE: No History of Uncontrolled Diabetes: No Urinary Catheter: No History of Decub. Ulcer: No History Surgical Site Infection Following: None - Disposition Have Diagnosis and Disposition been Completed?: Yes Diagnosis: CHF (congestive heart failure) Disposition: HOSPITALIZED Disposition Time: 18:15 Patient Problems: Current Active Problems Problem Status Onset CHF (congestive heart failure) Acute Condition: GOOD Discharge Instructions (ExitCare): Heart Failure (ED) Forms: [employer] ([place])
[2018-04-19 17:36] LABS: BASO # 0.03 K/mm3 (0.0-2.0); BASO % 0.3 % (0.0-3.0); EOS # 0.2 (0.0-0.7); EOS % 2.7 % (1.5-5.0); GRAN # 5.58 (1.4-6.5); HEMOGLOBIN 15.4 g/dL (12.0-16.0); LYMPH # 1.7 (1.2-3.4); LYMPH % 19.4 % (22.0-35.0); MEAN CELL VOLUME 90.2 fl (80.0-105.0); MEAN CORPUSCULAR HEMOGLOBIN 28.5 pg (25.0-35.0); MEAN CORPUSCULAR HGB CONC 31.6 g/dl (31.0-37.0); MEAN PLATELET VOLUME 9.9 fl (7.0-11.0); MONO # 1.4 (0.1-0.6); MONO % 15.6 % (1.0-6.0); RBC 5.41 10^6/uL (3.5-6.1); RED CELL DISTRIBUTION WIDTH 14.9 % (11.5-14.5)
[2018-04-19 17:38] LABS: ALB/GLOB RATIO 1.4 (1.1-1.8); ALBUMIN 4.4 g/dL (3.0-4.8); CALCIUM 9.6 mg/dL (8.4-10.5)
[2018-04-19 17:39] LABS: INR 1.77; PROTHROMBIN TIME 20.4 SECONDS (9.4-12.5)
--- NOTE | 2018-04-19 17:41 | RAD ---
Date of service: 04/19/2018 HISTORY: Shortness of breath. COMPARISON: 11/12/2016 TECHNIQUE: Chest PA and lateral FINDINGS: LUNGS: No active pulmonary disease. PLEURA: No significant pleural effusion identified. No pneumothorax apparent. CARDIOVASCULAR: No atherosclerotic calcification present No radiographic findings to suggest acute or significant cardiovascular disease. Position/ configuration of pacemaker device: Satisfactory. This represents a new finding compared to the prior study OSSEOUS STRUCTURES: No significant abnormalities. VISUALIZED UPPER ABDOMEN: Normal. OTHER FINDINGS: None. IMPRESSION: No active disease. No significant interval change compared to the prior examination(s).
[2018-04-19 17:49] LABS: TROPONIN I 0.03 ng/mL
--- NOTE | 2018-04-20 16:42 | CARD ---
APPROVED REPORT Date of service: 04/19/2018 EKG Measurement Heart [id number] <Conclusion> AV sequential or dual chamber electronic pacemaker
[2018-04-20] MEDS ORDERED: Enoxaparin 100 mg Syringe SC ONE (17:23)
[2018-04-21] MEDS: Levothyroxine 75 MCG TAB PO SCH (05:31)
[2018-04-21] MEDS: Pantoprazole 40 mg EC Tab PO SCH (05:31)
--- NOTE | 2018-04-21 05:58 | CON ---
DATE: 04/20/2018 REASON FOR CONSULTATION AND FOLLOWUP: Shortness of breath, rule out congestive heart failure, and paroxysmal atrial fibrillation, status post pacemaker. BRIEF CLINICAL HISTORY: This is an 83-year-old female with past medical history significant for paroxysmal atrial fibrillation, on anticoagulation, history of permanent pacemaker placed in 07/[address] Boogie at [facility], being followed by [facility] Dr. Mcgee, who was feeling sick for the last couple of days fever, chills and little cough and shortness of breath when going to the bathroom to the bedroom, feels very short of breath. Denies any chest pain. Denies any shortness of breath. Denies any palpitation, but complaints of mild shortness of breath when walking. PAST MEDICAL HISTORY: Significant for hypertension, chronic atrial fibrillation, persistent hypotension, generalized osteoarthritis, hypothyroidism, history of breast CA, currently in remission, being followed for heart by Dr. Mcgee. SOCIAL HISTORY: Quit smoking for more than 40 years ago and denies any history of alcohol abuse. CURRENT MEDICATIONS: The patient is taking at home gabapentin 300 mg daily, Actonel 35 mg daily, Coumadin 2 mg daily, levothyroxine 50 mcg daily, Prevacid 30 mg daily, Ditropan 5 mg daily, lovastatin 40 mg daily, and amlodipine 10 mg daily. The patient recently complained of seizure given the gabapentin by and now recently was switched over to lamotrigine, but was cautioned that if developed rash, quit. As the patient developed rash on face, she stopped taking. Recent cardiac workup is not available, though the patient has stress test done [address] Floyd[address] office and echo was done probably more than a year ago. Previous EKG dated 03/28/2016 shows AFib and the most recent 01/23 also shows sinus bradycardia, has a history of paroxysmal atrial fibrillation and recently she said the heart rate was slow and in July of this year, the patient had a pacemaker dual chamber. REVIEW OF SYSTEMS: As per HPI. PHYSICAL EXAMINATION VITAL SIGNS: Height of the patient 5 feet 5 inches, weight of the patient 215 pounds, body mass index 36.9 kg/m2. Rest of the vitals; temperature afebrile, heart rate 60, blood pressure 125/76. HEENT: PERRLA. Extraocular muscles intact. NECK: Supple. No carotid bruits or thyromegaly. CHEST: Clear to auscultation. HEART: S1 and S2 regular. ABDOMEN: Soft. EXTREMITIES: Clubbing and cyanosis, negative. LABORATORY DATA: Blood workup as follows. WBC 9, hemoglobin 15.4, hematocrit 48.8, and platelet count 333. Chemistry shows sodium 139, potassium 4.5, chloride 105, carbon dioxide 22, anion gap of 15, BUN 18, creatinine 1.2. BNP is 2210. TSH 5.2. IMPRESSION: An 83-year-old female with past medical history significant for paroxysmal atrial fibrillation in 2014, atrial fibrillation in 2017. EKG shows normal sinus, on Coumadin, history of pacemaker placed in 07/2017, admitted with shortness of breath, elevated BNP, has a history of coughing, chills, probably cannot rule out early bronchitis. Chest x-ray consistent with a questionable infiltration of right lower lobe, but no definite congestion noted on chest x-ray. Official reading also shows no active disease on chest x-ray. EKG shows normal sinus with AV sequential pacing noted. As mentioned cannot rule out early pneumonia or bronchitis, mild congestion, but clinically the patient is not in failure. INR is subtherapeutic. We will resume back Coumadin. Gave gentle diuretics followup, diuretics 1 dose was given at 2 p.m. We will give another dose at 6. p.m. and change from tomorrow to morning dose. We will get echo to assess left ventricular function and since the patient has subtherapeutic INR and paroxysmal, will give 1 dose of Lovenox cover as a bridge. We will get echo to assess left ventricular function, lipid profile, TSH and since the patient has elevated TSH, we will increase levothyroxine to 75 mcg daily. We will follow. Thank you, Dr. Pagan for providing us the opportunity in taking care of the patient, Clarissa Gross. Armaan Seymour MD
[2018-04-21] MEDS ORDERED: Levothyroxine 50 MCG TAB PO SCH (06:00)
[2018-04-21 06:23] LABS: BASO # 0.03 K/mm3 (0.0-2.0); BASO % 0.4 % (0.0-3.0); EOS # 0.3 (0.0-0.7); EOS % 3.4 % (1.5-5.0); GRAN # 3.48 (1.4-6.5); GRAN % 44.4 % (50.0-68.0); HEMOGLOBIN 14.8 g/dL (12.0-16.0); LYMPH # 2.7 (1.2-3.4); LYMPH % 34.3 % (22.0-35.0); MEAN CELL VOLUME 89.1 fl (80.0-105.0); MEAN CORPUSCULAR HEMOGLOBIN 28.4 pg (25.0-35.0); MEAN CORPUSCULAR HGB CONC 31.8 g/dl (31.0-37.0); MEAN PLATELET VOLUME 10.1 fl (7.0-11.0); MONO # 1.4 (0.1-0.6); MONO % 17.5 % (1.0-6.0); RBC 5.22 10^6/uL (3.5-6.1); RED CELL DISTRIBUTION WIDTH 14.7 % (11.5-14.5); WHITE BLOOD COUNT 7.8 10^3/ul (4.5-11.0)
--- NOTE | 2018-04-21 06:45 | HP ---
DATE OF EXAM: 04/20/2018 HISTORY OF PRESENT ILLNESS: The patient is an 83-year-old, patient of Dr. South, came to the emergency room with increasing shortness of breath for the last 2 to 3 days. It started 3 days ago, but has gotten worse so she came last night because of shortness of breath. Denies any fever or chills. No history of nausea or vomiting. She does have diabetic neuropathy for that she recently was seen by changed her medication, put on gabapentin to lamotrigine, but she developed rash, she stopped that also. PAST MEDICAL HISTORY: Otherwise significant for: 1. Chronic atrial fibrillation. 2. Status post pacemaker placement. 3. History of hypertension. 4. History of peptic ulcer disease. 5. Generalized osteoarthritis. 6. Hypothyroidism. 7. History of CA breast. ALLERGIES: SHE IS NOT ALLERGIC TO ANY MEDICATION. MEDICATIONS AT HOME: She is on diazepam 5 mg three times a day, lovastatin 40 mg daily, Lidoderm patch, nortriptyline 100 mg at bedtime, amiodarone mg daily, levothyroxine 50 mcg daily, metoprolol 50 mg daily, amlodipine 2.5 mg daily, Coumadin 2 mg daily, oxybutynin 5 mg daily, and Actonel. SOCIAL HISTORY: She lives with her family. Denies smoking, drinking or alcohol use. She does admit that she used to be a heavy smoker in the past. REVIEW OF SYSTEMS: Significant for cough and congestion. PHYSICAL EXAMINATION GENERAL: She is awake and alert, able to communicative. VITAL SIGNS: She is afebrile, pulse 70, respirations 20, blood pressure 138/91. LUNGS: Bilateral soft crackles at bases. HEART: S1 and S2 audible. ABDOMEN: Soft, obese, nontender, no rebound, no guarding. NEUROLOGIC: Patient is awake, alert, oriented, and able to communicate. EXTREMITIES: Bilateral legs no edema. LABORATORY DATA: WBC 9.0, hemoglobin 15.4, hematocrit 48.8, and platelets 333. PT 20.4. INR 1.77. Chemistry: Sodium 139, potassium 4.5, chloride 105, CO2 of 22, BUN 18, creatinine 1.2, blood sugar of 101. LFTs are within normal limits. BNP 2210. TSH is 5.20. EKG shows AV sequential dual chamber pacemaker. X-ray chest, no active disease. No significant interval change compared to the prior exam. ASSESSMENT AND PLAN: 1. Congestive heart failure exacerbation, acute on chronic, systolic. 2. Hypertension. 3. Status post pacemaker placement. 4. Chronic atrial fibrillation, on anticoagulation. 5. Hypothyroidism. 6. History of breast cancer. PLAN: The patient will be admitted. We will start her on IV diuretics, I will give her 3 mg of Coumadin today. We will start her on statins and gabapentin has been started and Dr. Seymour has increased the dose of levothyroxine from 50 to 75. We will order for echocardiogram. Follow up electrolytes in a.m. and will follow with you. Jackie Pagan MD
[2018-04-21 07:22] LABS: ALB/GLOB RATIO 1.3 (1.1-1.8); ALBUMIN 4.2 g/dL (3.0-4.8); CALCIUM 9.6 mg/dL (8.4-10.5)
--- NOTE | 2018-04-21 13:26 | PN ---
DATE: 04/21/2018 SUBJECTIVE: The patient is 83 years old, seen and examined. Still complained of shortness of breath on minimal exertion. No fever or chills. No nausea or vomiting. Just had echocardiogram done. PHYSICAL EXAMINATION: VITAL SIGNS: The patient is afebrile, pulse 64, respiration 20, blood pressure 95/54. LUNGS: Bilateral good airflow. No rhonchi or crackle. HEART: S1, S2 audible, irregular, rate controlled. ABDOMEN: Soft, nontender. No rebound, no guarding. NEUROLOGICAL: The patient is awake, alert, oriented, able to communicate. LABORATORY EXAM: WBC is 7.8, hemoglobin 14.8, hematocrit 46.5, platelet of 333. PT 20.4, INR 1.77. Chemistry: Sodium 139, potassium 4, chloride 105, CO2 22, BUN 29, creatinine 1.4, blood sugar of 94, TSH is 5.2. Echocardiogram is pending. ASSESSMENT: 1. Congestive heart failure exacerbation. 2. Hypertension. 3. Hyperlipidemia. 4. Status post pacemaker. 5. Neurogenic bladder. 6. History of anxiety disorder. PLAN: We will continue to diurese the patient. Followup PT/INR in a.m. I will speak to Dr. Seymour. The patient states she had a stress test done almost a year ago and was negative. Probably she needs cardiac cath to see her coronaries. We will discuss with Dr. Seymour and make further plan. Jackie Pagan MD
[2018-04-21 14:49] LABS: INR 1.91; PROTHROMBIN TIME 22.2 SECONDS (9.4-12.5)
--- NOTE | 2018-04-21 15:41 | PN ---
DATE: 04/21/2018 REASON FOR CONSULTATION AND FOLLOW UP: Shortness of breath, rule out congestive heart failure, paroxysmal atrial fibrillation, status post pacemaker. SUBJECTIVE: Patient denies any chest pain, shortness of breath, any palpitations. Complaining of shortness of breath when walking to the bathroom. PHYSICAL EXAMINATION: VITAL SIGNS: Temperature afebrile, heart rate 60, blood pressure 101/78. HEENT: PERRLA. Extraocular muscles intact. NECK: Supple. No carotid bruits, no thyromegaly. CHEST: Clear to auscultation. HEART: S1, S2 regular. ABDOMEN: Soft. EXTREMITIES: Clubbing, cyanosis negative. LABORATORY DATA: Blood workup as follows: WBC 7.8, hemoglobin 14.8, hematocrit 46.5, platelet count 333. Chemistry shows sodium 139, potassium 4, chloride 105, CO2 22, anion gap of 16, BUN 29, creatinine 1.4, BNP 2210. TSH 5.2. IMPRESSION: An 83-year-old female with past medical history significant for paroxysmal atrial fibrillation status post pacemaker, 07/[address] Boogie, being followed by Dr. Wheeler, [facility]. Admitted with shortness of breath. I tried to contact Dr. Wheeler at telephone number , who mentioned that patient has history of chronic shortness of breath, history of obstructive sleep apnea, did not tolerate CPAP, history of recent pacemaker as mentioned above, history of atrial fibrillation, history of last stress test 10/2016 with a normal ejection fraction preserved. Last echo 2 years ago, trace mitral regurgitation, trace tricuspid regurgitation, preserved left ventricular function, ejection fraction 69%. No significant pulmonary hypertension. So in view of the above, patient was on 100 mg of atenolol and 100 mg of amiodarone, which is not in the list, so we will resume low-dose of beta myauri, that is why we want to give straight away, patient not in beta mayuri probably by mistake it is labelled as amlodipine 100 mg, it is actually metoprolol succinate 100 mg daily. PLAN: So plan is we will put low dose of beta-mayuri as blood pressure is tolerated. We will get echo to assess LV function because it is more than 2 years. Change Lasix to p.o. because BUN and creatinine is increasing. Clinically patient is not in failure though BNP serially was elevated. Continue Coumadin, today INR is not back. We will stat order INR. Yesterday, gave 90 mg of Lovenox, was given as a bridge. We will follow the electrolytes. Further recommendations per hospital course. We will follow with you. We will discontinue amlodipine because of low blood pressure. Increased yesterday levothyroxine from 50 to 75 because of increasing TSH. We will repeat the blood workup in the morning. Thank you Dr. Pagan for providing the opportunity in taking care of patient, Clarissa Gross. Armaan Seymour MD
--- NOTE | 2018-04-21 21:33 | CARD ---
APPROVED REPORT Date of service: 04/21/2018 EXAM: Two-dimensional and M-mode echocardiogram with Doppler and color Doppler. INDICATION Congestive Heart Failure 2D DIMENSIONS Left Atrium (2D)5.1 (1.6-4.0cm)IVSd1.2 (0.7-1.1cm) LVDd4.5 (3.9-5.9cm)PWd1.1 (0.7-1.1cm) M-Mode DIMENSIONS Aortic Root3.20 (2.2-3.7cm)Aortic Cusp Exc.1.30 (1.5-2.0cm) Aortic Valve AoV Peak Nvvvtknq474.0cm/sAoV VTI34.2cmAO Peak GR.17mmHg LVOT Peak Oftlhmms58.5cm/sLVOT VTI13.90cmAO Mean GR.9mmHg Mitral Valve E/A ratio0.0 TDI E/Lateral E'0.0E/Medial E'0.0 Pulmonary Valve PV Peak Qglxwvqd00.2cm/sPV Peak Grad.1mmHg Tricuspid Valve TR Peak [id number]/sRAP [id number] Peak Gr.35mmHg [id number] LEFT VENTRICLE The left ventricle is normal size. There is mild concentric left ventricular hypertrophy. The systolic function is moderately to severely impaired.EF-25-30% Apical motion consistent with pacemaker activation. There is global hypokinesis of the left ventricle. A fib No left ventricle thrombus noted on this study. There is no ventricular septal defect visualized. There is no left ventricular aneurysm. There is no mass noted in the left ventricle. RIGHT VENTRICLE The right ventricle is normal size. There is normal right ventricular wall thickness. The right ventricular systolic function is normal. There is a pacemaker lead in the right ventricle. ATRIA The left atrium is moderately dilated. The right atrium size is normal. There is a catheter/pacemaker lead seen in the right atrium. The interatrial septum is intact with no evidence for an atrial septal defect. AORTIC VALVE The aortic valve is calcified and displays decreased opening. There is trace aortic regurgitation. There is mild to moderate valvular aortic stenosis. There is no aortic valvular vegetation. MITRAL VALVE The mitral valve is thickened but opens well. Mitral regurgitation is trace. There is no mitral valve stenosis. There is no evidence of mitral valve prolapse. TRICUSPID VALVE The tricuspid valve leaflets are thickened or calcified, but open well. There is mild to moderate tricuspid regurgitation.RVSP-45 mmof Hg. There is no tricuspid valve stenosis. There is no tricuspid valve prolapse or vegetation. PULMONIC VALVE The pulmonic valve is borderline thickened. There is trace pulmonic valvular regurgitation. There is no pulmonic valvular stenosis. GREAT VESSELS The aortic root is normal in size. The ascending aorta is normal in size. The pulmonary artery is normal. The IVC is normal in size and collapses >50% with inspiration. PERICARDIAL EFFUSION There is no pleural effusion. There is no pericardial effusion. <Conclusion> The left ventricle is normal size. There is mild concentric left ventricular hypertrophy. The systolic function is moderately to severely impaired.EF-25-30% There is trace aortic regurgitation. There is mild to moderate valvular aortic stenosis. Mitral regurgitation is trace. There is mild to moderate tricuspid regurgitation.RVSP-45 mmof Hg. There is no pericardial effusion.
[2018-04-22] MEDS: Pantoprazole 40 mg EC Tab PO SCH (05:19)
[2018-04-22] MEDS: Levothyroxine 75 MCG TAB PO SCH (05:19)
[2018-04-22 06:31] LABS: INR 2.15; PROTHROMBIN TIME 25.1 SECONDS (9.4-12.5)
[2018-04-22 06:46] LABS: ALB/GLOB RATIO 1.4 (1.1-1.8); ALBUMIN 3.8 g/dL (3.0-4.8); CALCIUM 9.7 mg/dL (8.4-10.5)
[2018-04-22 07:51] LABS: BASO # 0.03 K/mm3 (0.0-2.0); BASO % 0.4 % (0.0-3.0); EOS # 0.3 (0.0-0.7); EOS % 3.5 % (1.5-5.0); GRAN # 3.75 (1.4-6.5); GRAN % 48.7 % (50.0-68.0); HEMOGLOBIN 14.1 g/dL (12.0-16.0); LYMPH # 2.5 (1.2-3.4); LYMPH % 31.9 % (22.0-35.0); MEAN CELL VOLUME 89.7 fl (80.0-105.0); MEAN CORPUSCULAR HEMOGLOBIN 28.4 pg (25.0-35.0); MEAN CORPUSCULAR HGB CONC 31.6 g/dl (31.0-37.0); MEAN PLATELET VOLUME 10.4 fl (7.0-11.0); MONO # 1.2 (0.1-0.6); MONO % 15.5 % (1.0-6.0); RBC 4.97 10^6/uL (3.5-6.1); RED CELL DISTRIBUTION WIDTH 14.9 % (11.5-14.5); WHITE BLOOD COUNT 7.7 10^3/ul (4.5-11.0)
--- NOTE | 2018-04-22 09:58 | CARD ---
APPROVED REPORT Date of service: 04/22/2018 EKG Measurement Heart [id number] <Conclusion> Atrial fibrillation with rapid ventricular response Left axis deviation Left bundle branch block
--- NOTE | 2018-04-22 15:10 | PN ---
DATE: 04/22/2018 REASON FOR CONSULTATION AND FOLLOWUP: Shortness of breath, rule out congestive heart failure, paroxysmal atrial fibrillation, status post pacemaker. SUBJECTIVE: The patient complaining of shortness of breath and denies any chest pain. OBJECTIVE: GENERAL: Not in apparent distress, lying flat in the bed. VITAL SIGNS: Temperature afebrile, heart rate 85, blood pressure 119/69. HEENT: PERRLA. Extraocular muscles intact. NECK: Supple. No carotid bruit or thyromegaly. CHEST: Clear to auscultation. HEART: S1 and S2, regular. ABDOMEN: Soft. EXTREMITIES: Clubbing and cyanosis negative. LABORATORY DATA: Blood workup as follows; WBC 7.7, hemoglobin 14.2, hematocrit 44.6, platelet count 312. Chemistry shows sodium 130, potassium , carbon dioxide 22, anion gap of 14, BUN 27, creatinine 1.2. INR today is 2.15, yesterday was 1.91. IMPRESSION: An 83-year-old obese female with past medical history of sick sinus syndrome, status post permanent pacemaker, paroxysmal atrial fibrillation, on anticoagulation. The patient came with atrial flutter. Currently, the patient is in atrial flutter. Admitted with shortness of breath, congestive heart failure, elevated brain natriuretic peptide. Chest x-ray was consistent with congestive heart failure. Yesterday, the patient had echocardiography done that revealed left ventricular function at 25% to 30%, trace aortic regurgitation, [id number] valvular aortic stenosis, trace mitral regurgitation, [id number] tricuspid regurgitation. The patient used to follow up with [facility] Dr. Wheeler yesterday, tried to reach Dr. Wheeler and ultimately got holdover and get more information. According to Dr. Wheeler, the patient had history of chronic shortness of breath, history of obstructive sleep apnea, did not tolerate a continuous positive airway pressure, but left ventricular function was preserved. Last echocardiogram about two to years ago, preserved left ventricular function in the medical record and also last stress test in 10/2016, ejection fraction was preserved, but since the new drop in ejection fraction, I discussed with the patient to have a cardiac catheterization done. The patient is not sure whether done here or with Dr. Wheeler. The patient is going to discuss with Dr. Wheeler. Explained the patient that if she agrees to stop the Coumadin and then wait for two days until INR get below 1.5. If the patient agrees, we will do the cardiac catheterization and hold the Coumadin, otherwise continue with Dr. Wheeler and have a cardiac catheterization there. Interim, continue Coumadin 3 mg daily, also discussed about the medication with Dr. Wheeler. The patient was on amiodarone 200 mg, but because of shakes in the hand and tremor, cut down to 100, so we will restart 100 of amiodarone daily. The patient was on metoprolol 100 and Toprol XL, but because of low blood pressure started 25 p.o. b.i.d. Continue Lasix and if the patient does not want cardiac catheterization, possible discharge. We will start Lasix 40 today. Thank you, Dr. Pagan, for providing us the opportunity in taking care of the patient, Renato Romo. Admitting again EKG was sinus with outpatient in atrial flutter. We will get EKG as well. History of recently placed pacemaker in March in [facility] because of symptomatic bradycardia and paroxysmal AFib. Armaan Seymour MD
[2018-04-22 17:51] VITALS: TEMP 98
[2018-04-22 22:55] VITALS: BP 108/78; PULSE 107; RESP 18; O2SAT 94
--- NOTE | 2018-04-23 10:51 | DS ---
HISTORY OF PRESENT ILLNESS: The patient is 83 years old who was initially admitted with shortness of breath. The patient was given diuretic and she was started on beta-mayuri since she has history of AFib. She has been on Coumadin too. The patient's regular senior oracle dba is Dr. Wheeler, Dr. Seymour and myself. We spoke to Dr. Wheeler, he is willing to accept the patient. The patient is leaning to have catheterization done by Dr. Wheeler and that can only be done at [facility], so she is being transferred there for cardiac catheterization and further workup. PHYSICAL EXAMINATION: GENERAL: She is awake, alert, oriented and communicative. VITAL SIGNS: She is afebrile, pulse 56, respirations 18 and blood pressure 102/71. LUNGS: Bilateral fair airflow, few soft crackles at bases. HEART: S1 and S2 audible, irregular, rate controlled. ABDOMEN: Soft and nontender. No rebound. No guarding. NEUROLOGIC: The patient is awake, alert, oriented and communicative. EXTREMITIES: Bilateral legs no edema. LABORATORY DATA: WBC 7.7, hemoglobin 14, hematocrit 44 and platelets 312. PT is 25.1 and INR 2.14. ASSESSMENT: 1. Congestive heart failure because of elevated function. 2. Hypertension. 3. Status post pacemaker placement. 4. Hyperlipidemia. 5. Chronic atrial fibrillation. PLAN: The patient is being transferred to [facility]. We will hold her Coumadin and we will continue her amiodarone, oxybutynin, Lasix, atorvastatin,metoprolol 25 b.i.d. and she will continue on levothyroxine. She will be transferred to hospitalist service in [facility] and Dr. Wheeler will take care of her and possible cath in a.m. in [facility]. Jackie Pagan MD
--- NOTE | 2018-04-23 12:50 | PQF ---
PROVIDER RESPONSE TEXT: Mild acut CHF,CARDIOMYOPATHY EF IS 35% REVIEWER QUERY TEXT: Condition Necessitating Admission Please clarify the medical conditions and the associated clinical risk factors necessitating admissio n. The patient's Clinical Indicators include: Card consult notes " clinically not in failure" CXR c/w ? infiltrate LLL, cannot r/o early PNA or Bro nchitis. Please clarify principle reason for admission Query created by: Cynthia Medina on 04/22/2018 8:16 AM Electronically signed by: Jackie Pagan MD 04/23/2018 12:47 PM
== END 2018-04-22 23:02 | disposition short-term general hospital (02) | DRG 293 ==
LOC: ED 15:37 → ERH 18:24 → 2RNO 22:19 → OBSVTOIN 04-21 12:21
PROVIDERS: ADMIT Internal Medicine Medical Oncology; ATTEND Internal Medicine
DX: I11.0 Hypertensive heart disease with heart failure (principal); I50.23 Acute on chronic systolic (congestive) heart failure; I48.2 Chronic atrial fibrillation; N31.9 Neuromuscular dysfunction of bladder, unspecified; G47.33 Obstructive sleep apnea (adult) (pediatric); E11.40 Type 2 diabetes mellitus with diabetic neuropathy, unspecified; E03.9 Hypothyroidism, unspecified; I48.0 Paroxysmal atrial fibrillation; E78.5 Hyperlipidemia, unspecified; F41.9 Anxiety disorder, unspecified; M15.9 Polyosteoarthritis, unspecified; E66.9 Obesity, unspecified; Z68.36 Body mass index [BMI] 36.0-36.9, adult; Z85.3 Personal history of malignant neoplasm of breast; Z79.899 Other long term (current) drug therapy; Z79.01 Long term (current) use of anticoagulants; Z79.890 Hormone replacement therapy; Z95.0 Presence of cardiac pacemaker; Z90.10 Acquired absence of unspecified breast and nipple; Z87.891 Personal history of nicotine dependence

== ENCOUNTER 2018-07-13 11:09 | Outpatient (CLI) | payer MEDICARE | END 2018-07-13 11:10 | disposition home or self-care (01) | LOC: RAD 11:09 ==